=== PATIENT | female | born 1955 | race Caucasian/White ===

== ENCOUNTER 2017-01-07 23:28 | Emergency (ER) | payer OTHER ==
[2017-01-07 23:30] VITALS: BP 190/97; PULSE 82; RESP 16; TEMP 97.7; O2SAT 97
--- NOTE | 2017-01-08 00:24 | PD ---
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 She states that she wears glasses. She noticed sometime around 8:00 this evening vitreous floater type changes in her left eye. She states that approximately hour and half later she started getting flashes of light in her left eyes periphery. This prompted her to come to the ER. She denies any trauma. No diplopia. No pain. She does report having a headache for the last 2 weeks due to what she feels is Aleve related. She denies any foreign body sensation, tearing, light sensitivity or drainage. PFSH Past Medical History Narrative Medical Diabetes, hypertension, hypercholesterolemia Tetanus Vaccination: < 5 Years Past Surgical History Narrative Surgical Right knee arthroscopy Social History Alcohol Use: Yes Tobacco Use: No Substance Use: No Allergies-Medications (Allergen,Severity, Reaction): Coded Allergies: No Known Allergies (Unverified , 01/08/17) Reported Meds & Prescriptions Reported Meds & Active Scripts Active Reported Vitamin D (Ergocalciferol) 50,000 Unit Cap 50,000 Units PO Q 2WEEKS Crestor (Rosuvastatin Calcium) 20 Mg Tab 20 Mg PO WEEKLY Metformin (Metformin HCl) 850 Mg Tab 850 Mg PO BIDPC With meals Losartan (Losartan Potassium) 50 Mg Tab 50 Mg PO DAILY Review of Systems Except as stated in HPI: all other systems reviewed are Neg General / Constitutional: No: Fever, Chills Eyes: Positive: Visual changes, No: Diploplia, Blurred Vision, Photophobia, Drainage, Redness, Foreign Body Sensation, Pain, Tearing, Blindness HENT: No: Headaches, Sore Throat Cardiovascular: No: Chest Pain or Discomfort, Palpitations Respiratory: No: Cough, Shortness of Breath Gastrointestinal: No: Nausea, Vomiting Genitourinary: No: Dysuria, Hematuria Physical Exam Narrative GENERAL: Well-developed, well-nourished in no acute distress. Nontoxic appearing. HEAD: Normocephalic, atraumatic. EYES: Pupils equal round and reactive. Extraocular motions intact. No scleral icterus. No injection or drainage. Fundi are clear. Optic discs clear. Visual acuity 20/20 in the right eye and 20/20 in the left eye with glasses. ENT: TMs clear without erythema. The external auditory canals clear. Nose: clear . Posterior pharynx is pink and moist. No tonsillar edema or exudate. Uvula midline. Airway patent. NECK: Trachea midline.Supple, nontender, moves head freely. No central bony tenderness or spasm. CARDIOVASCULAR: Regular rate and rhythm without murmurs, gallops, or rubs. RESPIRATORY: Clear to auscultation. Breath sounds equal bilaterally. No wheezes , rales, or rhonchi. GASTROINTESTINAL: Abdomen soft, non-tender, nondistended. No hepato-splenomegaly , or palpable masses. No guarding. EXTREMITIES: No clubbing, cyanosis, or edema. No joint tenderness, effusion, or edema noted. BACK: Nontender without deformity or crepitance. No flank tenderness. Data Data Last Documented VS Vital Signs Date Time Temp Pulse Resp B/P Pulse Ox O2 Delivery O2 Flow Rate FiO2 01/07/17 23:30 97.7 82 16 190/97 97 Room Air MDM Medical Decision Making Medical Screen Exam Complete: Yes Emergency Medical Condition: Yes Medical Record Reviewed: Yes Differential Diagnosis MDM: High Differential diagnoses: diabetic retinopathy, retinal detachment, retinal hemorrhage Narrative Course The case has been discussed with Dr. Cho. She has agreed to see the patient in the morning. This is left eye visual changes, rule out retinal detachment Diagnosis Primary Impression: left eye visual changes Additional Impression: rule out retinal detachment Referrals: Corie Cho MD 1 day Patient Instructions: General Instructions Additional Instructions: Rest. Follow-up with a [facility] cashier supervisor tomorrow morning at 9 AM. If you're unable to see a [facility] cashier supervisor Dr. Corie Cho has agreed to see her tomorrow morning at 9 AM. Med/Other Pt SpecificInfo: No Meds Exist/No RX given Disposition: 01 DISCHARGE HOME Condition: Stable Chato Lemon Jan 08, 2017 00:24
[2017-01-08] MEDS ORDERED: LOSA50TA PO (00:27)
[2017-01-08] MEDS ORDERED: ERGO1CAP10 PO (00:27)
[2017-01-08] MEDS ORDERED: ROSU20 PO (00:27)
[2017-01-08] MEDS ORDERED: METF850T PO (00:27)
[2017-03-12] MEDS ORDERED: ERGO1CAP30 PO (11:28)
[2017-03-12] MEDS ORDERED: OMEGCAP PO (11:30)
[2017-03-12] MEDS ORDERED: VITATAB11 (11:30)
[2017-03-18] MEDS ORDERED: MULT1TAB93 (10:28)
[2017-03-18] MEDS ORDERED: TRAM50TA PO (13:12)
== END 2017-01-08 01:28 | disposition home or self-care (01) ==
LOC: NEPB 23:28
DX: H53.8 Other visual disturbances (principal)
CPT/HCPCS: 99283

== ENCOUNTER 2017-04-16 09:14 | Observation (INO) | payer OTHER ==
[~2017-04-16] VITALS: Ht 165.1 cm; Wt 101.9 kg
[~2017-04-16 09:14] MED LIST: ERGO1CAP30 PO; LOSA50TA PO; METF850T PO; MULT1TAB93; OMEGCAP PO; ROSU20 PO; TRAM50TA PO; VITATAB11
[2017-04-16 09:51] VITALS: BP 143/82; PULSE 86; RESP 18; TEMP 97.5; O2SAT 96
[2017-04-16] MEDS ORDERED: INSULIN HUMAN REGULAR 1,000 UNITS/10 ML VIAL SQ PRN (10:30)
[2017-04-16] MEDS ORDERED: LACTATED RINGER'S 1000 ML IV PRN (10:30)
[2017-04-16] MEDS ORDERED: SODIUM CHLORID 0.9% 500 ML IV PRN (10:30)
[2017-04-16] MEDS ORDERED: LACTATED RINGER'S 1000 ML INJ 1,000 ML IV SCH (10:30)
[2017-04-16] MEDS ORDERED: CHLORHEXIDINE GLUCONATE 2 % 1 PACK (2 CLOTHS) TOPICAL PRN (10:30)
[2017-04-16] MEDS ORDERED: POVIDONE IODINE 5% (ANTISEPSIS KIT) 4 APPLICATIONS EACH NARE PRN (10:30)
[2017-04-16] MEDS ORDERED: METOPROLOL TARTRATE 25 MG TAB PO PRN (10:30)
[2017-04-16] MEDS ORDERED: GELFOAM SIZE 100 ONE (10:33)
[2017-04-16] MEDS ORDERED: THROMBIN (TOPICAL) 5,000 UNIT VIAL ONE (10:33)
[2017-04-16] MEDS ORDERED: LIDOCAINE 1%/EPINEPHrine 1:100,000 SOLN 20 ML VIAL ONE (10:34)
[2017-04-16] MEDS ORDERED: GENTAMICIN SULFATE 80 MG/2 ML VIAL ONE (10:34)
[2017-04-16] MEDS: ceFAZolin 1,000 MG/NS 100 ML IV SCH ×4 (10:35→23:28)
[2017-04-16] MEDS ORDERED: fentaNYL CITRATE 250 MCG/5 ML AMP ONE (11:10)
[2017-04-16] MEDS ORDERED: APREPITANT 40 MG CAP ONE (11:10)
[2017-04-16] MEDS ORDERED: LACTATED RINGER'S 1000 ML INJ 1,000 ML IV ONE (14:20)
[2017-04-16] MEDS ORDERED: PROPOFOL 200 MG/20 ML AMP IV ONE (14:20)
[2017-04-16] MEDS ORDERED: PHENYLEPH/NS 1000 MCG/10 ML SYR IV ONE (14:20)
[2017-04-16] MEDS ORDERED: ONDANSETRON HCL 4 MG/2 ML VIAL IV PUSH ONE (14:20)
[2017-04-16] MEDS: D5-1/2 NS + KCL 20 MEQ INJ 1,000 ML IV SCH ×3 (14:59→23:28)
[2017-04-16] MEDS ORDERED: SODIUM CHLORIDE 0.9% FLUSH 5 ML FLUSH IVF PRN (15:00)
[2017-04-16] MEDS ORDERED: ONDANSETRON HCL 4 MG/2 ML VIAL IV PRN (15:00)
[2017-04-16] MEDS ORDERED: PROMETHAZINE INJ 25 MG/ML VIAL IM PRN (15:00)
[2017-04-16] MEDS ORDERED: DO NOT ADM ANY ANTICOAGULANT DRUGS PRN (15:00)
[2017-04-16] MEDS ORDERED: NALOXONE HCL 0.4 MG/ML AMP IV PRN (15:00)
[2017-04-16] MEDS ORDERED: HYDROmorphone HCL PF 1 MG/ML VIAL IV PRN (15:00)
[2017-04-16] MEDS ORDERED: HYDROmorphone HCL 2 MG TAB PO PRN (15:00)
--- NOTE | 2017-04-16 15:12 | PD.OP ---
Operative Report Date of Surgery: Apr 16, 2017 Preoperative Diagnosis: (1) Cervical spinal stenosis (2) Cervical spondylosis with myelopathy 1. Cervical spondylosis and degenerative disc disease 2. Severe C5 6 stenosis 3. Cervical myelopathy Postoperative Diagnosis: (1) Cervical spinal stenosis (2) Cervical spondylosis with myelopathy 1. Cervical spondylosis and degenerative disc disease 2. Severe C5 6 stenosis 3. Cervical myelopathy Procedure: 1. C5 6 anterior cervical discectomy, resection posterior osteophytic disc complex, bilateral foraminotomy-microtechnique 2. C5-6 anterior interbody fusion with composite allograft bone 3. C5-6 anterior cervical instrumentation Anesthesia: Gen. endotracheal Surgeon: Kimo Lloyd Ethylene Plant Operator(s): Katie Ervin Operation and Findings: Procedure in detail: The patient was brought into the operating room and positioned in supine position on the 3080 table with the head and neck in neutral position. Lines were established by Anesthesia. Gen. endotracheal anesthesia was induced without difficulty, taking care not to significantly flex or extend the patient's neck during intubation and positioning. Leads for intraoperative neuro monitoring were placed and a baseline study obtained. All extremities were appropriately padded. The neck and upper chest were shaved with clippers and sterilely prepped and draped. Appropriate timeout procedure was performed with all personnel present and in agreement 1% Xylocaine with epinephrine was used for local infiltration over the incision site which was made transversely at the left C5-6 level and carried sharply down through the platysma muscle. The exposure was continued medial to the sternocleidomastoid muscle and carotid artery, and lateral to the trachea and esophagus. The prevertebral fascia was elevated away from the anterior longitudinal ligament with a Kitner sponge. The longus coli muscle on each side was elevated with the Leal elevator. The self-retaining retractor was placed with the blades beneath the longus coli muscle on each side. The appropriate levels were confirmed with intraoperative C-arm and preoperative imaging studies. The microscope was brought into place and used for the remainder of the procedure including the closure. The 14 mm distraction pins were used as needed for gentle distraction during the procedure. The anterior osteophyte was removed with a Leksell rongeur and the TPS drill The disc and annulus was incised with a 15 blade knife and discectomy performed with pituitary biopsy forceps and straight and angled curettes. The TPS drill with the 5 mm barrel bur was used to decorticate the endplates and removed the majority of the osteophyte along the anterior spinal canal as well as the right and left uncovertebral joint. The thin ligament dissector was used to free up the posterior annulus and ligament from the vertebral body margin. The remainder of the resection of the posterior annulus and ligament as well as the posterior osteophyte and bilateral uncovertebral joint was performed with the 2 and 3 mm thin footplate Kerrison rongeurs. A component of herniated nucleus pulposus was encountered posterior to the annulus and was lifted away from the thecal sac with the thickened ligament dissector and removed. Significant posterior osteophyte was encountered and extensively removed. The posterior vertebral bodies were undercut with the Kerrison rongeur and the TPS drill with the 4 mm johanne bur as needed to fully decompress the anterior spinal canal. The appropriate size 8 x 10 lordotic V G2 bone graft was then placed at each level with a good fit of the graft. The blunt nerve hook was used to probe beneath the bone graft to ensure that there was no impingement on the thecal sac or exiting nerve roots. The appropriate size Precision anterior cervical plate was then chosen and the bone screws were placed with the 14 mm fixed screws at the caudal most level and the 14 mm variable screws at the cephalad level of the decompression. The screws were firmly secured and the locking cams engaged. The entire construct was checked with intraoperative C-arm and felt to be satisfactory. The 10 Indian drain was brought out through a small incision in the left lower neck and secured to the skin with nylon suture and attached to sterile suction. The closure was performed with 3-0 Vicryl running for the platysma and interrupted for the subcutaneous closure, with 4-0 Vicryl running for the subcuticular closure. A dressing of sterile Mastisol, Steri-Strips, and Primapore dressing was placed. The patient was placed into a cervical collar, and taken to recovery room in stable condition. All counts were correct at the end of the case. Estimated blood loss was 150 cc No specimen was sent to pathology. Intraoperative neuro monitoring remained stable during the procedure. Kimo Lloyd MD Apr 16, 2017 15:12
--- NOTE | 2017-04-16 15:27 | RADRPT ---
EXAM DATE/TIME: 04/16/2017 12:19 [place] COMPARISON: No previous studies available for comparison. INDICATIONS : Fusion C5,C6 with screws and plate placement. MEDICAL HISTORY : None. SURGICAL HISTORY : None. ENCOUNTER: Initial ACUITY: 1 day PAIN SCORE: Non-responsive. LOCATION: Cervical spine. FINDINGS: Status post anterior cervical fusion at C5-6. Good position and alignment on this lateral view. CONCLUSION: Good position and alignment on this postoperative view. Иван Hinton MD on April 16, 2017 at 15:24 Board Certified Radiologist. This report was verified electronically.
[2017-04-16] MEDS ORDERED: *morphine SULFATE 8 MG/ML PERIprocedure ONLY ONE (16:06)
[2017-04-16 17:45] VITALS: BP 169/74; PULSE 82; RESP 18; TEMP 97.9; O2SAT 97
[2017-04-16 19:50] VITALS: O2SAT 95
[2017-04-16 20:01] VITALS: BP 146/72; PULSE 83; RESP 17; TEMP 96.8; O2SAT 93
[2017-04-16] MEDS: SODIUM CHLORIDE 0.9% FLUSH 5 ML FLUSH IVF SCH (21:00)
[2017-04-16] MEDS: DOCUSATE SODIUM 100 MG CAP PO SCH (21:05)
[2017-04-17 00:15] VITALS: BP 132/69; PULSE 90; RESP 16; TEMP 97.9; O2SAT 95
[2017-04-17] MEDS: traMADol HCL 50 MG TAB PO PRN ×2 (05:09→15:30)
[2017-04-17 07:34] VITALS: BP 137/67; PULSE 79; RESP 19; TEMP 98.2; O2SAT 96
[2017-04-17] MEDS: SODIUM CHLORIDE 0.9% FLUSH 5 ML FLUSH IVF SCH (09:00)
[2017-04-17] MEDS ORDERED: PANTOPRAZOLE SOD 40 MG DELAYED RELEASE TAB PO SCH (09:00)
[2017-04-17] MEDS: DOCUSATE SODIUM 100 MG CAP PO SCH (10:15)
[2017-04-17 10:56] VITALS: O2SAT 97
[2017-04-17 11:31] VITALS: BP 131/65; PULSE 74; RESP 19; TEMP 98.3; O2SAT 97
[2017-04-17] MEDS ORDERED: DILA2TAB2 PO (14:47)
--- NOTE | 2017-04-17 14:48 | HHI.DCPOC ---
Discharge Care Plan Diagnosis: (1) Cervical spinal stenosis (2) Cervical spondylosis with myelopathy Your Health Problems Are: Incision/Drains Difficulty to Swallow Goals to Promote Your Health * To prevent worsening of your condition and complications * To maintain your health at the optimal level Directions to Meet Your Goals Take your medications as prescribed Follow your dietary instruction Follow activity as directed Keep your appointments as scheduled Take your immunizations and boosters as scheduled If your symptoms worsen call your PCP, if no PCP go to Urgent Care Center or Emergency Room Smoking is Dangerous to Your Health. Avoid second hand smoke Call the 24-hour hour crisis hotline for domestic abuse at Kimo Lloyd MD Apr 17, 2017 14:48
--- NOTE | 2017-04-17 22:51 | HHI.DS ---
Discharge Summary Admission Date Apr 16, 2017 at 15:06 Discharge Date: Apr 17, 2017 Admitting Diagnosis Cervical stenosis with myelopathy (1) Cervical spinal stenosis Diagnosis: Principal ICD Code: M48.02 (2) Cervical spondylosis with myelopathy Diagnosis: Secondary ICD Code: M47.12 Procedures C5-6 Anterior cervical discectomy and fusion 04/16/17 Hospital Course Patient admitted for the above noted procedure performed without complication. Postoperative day #1 tolerating diet well, pain control with oral medications, ambulating independently. Minimal drain output, dressing dry and intact, stable neurologic exam. Pt Condition on Discharge: Good Discharge Disposition: Discharge Home Discharge Instructions DIET: Follow Instructions for: As Tolerated, No Restrictions ACTIVITIES You can perform: Weight Bearing As [place] Activities to Avoid: Lifting/Bending, Strenuous Activity Kimo Lloyd MD Apr 17, 2017 22:51
== END 2017-04-17 16:38 | disposition home or self-care (01) ==
LOC: HSDC 09:14 → HSDI 15:06 → N06A 17:16
PROVIDERS: ADMIT Neurological Surgery; ATTEND Neurological Surgery
DX: M48.02 Spinal stenosis, cervical region (principal); M47.12 Other spondylosis with myelopathy, cervical region; M50.30 Other cervical disc degeneration, unspecified cervical region; Z83.3 Family history of diabetes mellitus
CPT/HCPCS: 00600; 00670; 20931; 22551; 22845; 72020; 76000; 82948; 94150; C1713; G0378; J0690; J1580; J2270; J2370; J2405; J3010; J3480; J7120; J8501; L0150; L0172